=== PATIENT | female | born 1970 | race Two or more races ===

== ENCOUNTER 2021-03-28 13:25 | Emergency (ER) | payer MEDICAID, OTHER ==
[~2021-03-28] VITALS: Ht 172.7 cm; Wt 66.4 kg
--- NOTE | 2021-03-28 13:42 | NUR ---
PT AMBULATORY TO ROOM FROM TRIAGE, PT CHANGED INTO GOWN. MONITORS IN PLACE. CALL LIGHT WITHIN REACH. COMFORT MEASURES PROVIDED.
--- NOTE | 2021-03-28 14:04 | NUR ---
BREAK RN: PT GIVEN UA SAMPLE CUP
[2021-03-28] MEDS ORDERED: FAMOTIDINE 20 MG/2 ML ONE (14:15)
[2021-03-28] MEDS ORDERED: MORPHINE SULFATE 4 MG/ML, 1ML ONE (14:15)
[2021-03-28] MEDS ORDERED: ONDANSETRON 2MG/ML, 2ML ONE (14:15)
[2021-03-28 14:43] LABS: BASOPHILS % (AUTO) 0 % (0-1); EOSINOPHILS % (AUTO) 0 % (1-7); LYMPHOCYTES % (AUTO) 12 % (22-44); MEAN CORPUSCULAR HEMOGLOBIN 33.3 pg (27.0-34.8); MEAN PLATELET VOLUME 8.4 fL (7.4-10.4); MONOCYTES % (AUTO) 9 % (2-9); NEUTROPHILS % (AUTO) 78 % (42-75); PLATELET COUNT 176 x10^3/uL (130-400); RED BLOOD COUNT 5.25 x10^6/uL (3.82-5.3); RED CELL DISTRIBUTION WIDTH 14.5 % (9.6-15.2)
[2021-03-28 14:45] LABS: MD NO
--- NOTE | 2021-03-28 14:48 | NUR ---
BREAK RN: IV, FLUIDS, MEDICATIONS, UA SENT. LABS COMPLETE
[2021-03-28 14:53] LABS: ALANINE AMINOTRANSFERASE 43 U/L (12-78); ALBUMIN 4.1 g/dL (3.4-5.0); ANION GAP 3 mmol/L (5-15); CALCIUM 9.6 mg/dL (8.5-10.1); CHLORIDE 98 mmol/L (98-107); CREATININE 0.81 mg/dL (0.55-1.02)
[2021-03-28 14:55] LABS: ALKALINE PHOSPHATASE 151 U/L (45-117); BILIRUBIN,TOTAL 0.7 mg/dL (0.2-1.0); TOTAL PROTEIN 8.5 g/dL (6.4-8.2)
[2021-03-28 14:59] LABS: MICROSCOPIC INDICATED
[2021-03-28] MEDS ORDERED: SODIUM CHLORIDE 0.9% 1,000ML IVBOLUS ONE ×2 (15:00→16:00)
[2021-03-28] MEDS ORDERED: FAMOTIDINE 20 MG/2 ML IVPush ONE (15:00)
[2021-03-28] MEDS ORDERED: ONDANSETRON 2MG/ML, 2ML IVPush ONE (15:00)
[2021-03-28] MEDS ORDERED: MORPHINE SULFATE 4 MG/ML, 1ML IVPush PRN (15:00)
[2021-03-28] MEDS ORDERED: SODIUM CHLORIDE FLUSH 10ML SYR IVF ONE (15:00)
[2021-03-28] MEDS ORDERED: HYDROmorphone 1 MG/ML, 1ML INJ ONE (15:35)
--- NOTE | 2021-03-28 15:41 | NUR ---
PT AMBULATORY TO BR WITH UPRIGHT STEADY GAIT. NADN/VSS. CALL LIGHT WITHIN REACH. MEDICATED PER EMAR
[2021-03-28] MEDS ORDERED: HYDROmorphone 1 MG/ML, 1ML INJ IV ONE (16:00)
[2021-03-28 16:51] VITALS: BP 175/82
--- NOTE | 2021-03-28 16:52 | NUR ---
Patient given discharge instructions and they have confirmed that they understand the instructions. Patient ambulatory with steady gait.
== END 2021-03-28 16:58 | disposition home or self-care (01) ==
LOC: ED 16:30
DX: K85.20 Alcohol induced acute pancreatitis without necrosis or infection (principal); R10.13 Epigastric pain; R11.2 Nausea with vomiting, unspecified
CPT/HCPCS: 36415; 80053; 81001; 83690; 85025; 87086; 93005; 96361; 96374; 96375; 99284; J1170; J2270; J2405; J7030